=== PATIENT | female | born 1980 ===

== ENCOUNTER 2024-07-04 10:05 | Outpatient (RCR) | payer BC, SELFPAY ==
[2024-06-20 13:12] VITALS: BP 112/70
[2024-06-20] MEDS: VENOFER 110 MG IV (13:29)
[2024-06-20 14:37] VITALS: BP 101/59
[2024-06-27 10:11] VITALS: BP 119/65
[2024-06-27] MEDS: VENOFER 110 MG IV (10:23)
[2024-06-27 11:50] VITALS: BP 103/45
[2024-07-04] MEDS: VENOFER 110 MG IV (10:25)
[2024-07-04 10:28] VITALS: BP 102/64
[2024-07-04 11:45] VITALS: BP 101/56
== END 2024-07-05 08:38 | disposition home or self-care (01) ==
LOC: OID 10:05
PROVIDERS: ATTENDING PHYSICIAN Student in an Organized Health Care Education/Training Program
DX: D50.9 Iron deficiency anemia, unspecified (principal); R79.89 Other specified abnormal findings of blood chemistry
CPT/HCPCS: 96365; J1756

== ENCOUNTER → 2024-07-19 14:17 | Outpatient (REF) | payer BC, SELFPAY | LOC: HWRAD 14:17 | PROVIDERS: ATTENDING PHYSICIAN Internal Medicine Gastroenterology; FAMILY PHYSICIAN Student in an Organized Health Care Education/Training Program | DX: R74.8 Abnormal levels of other serum enzymes (principal) | CPT/HCPCS: 76700 ==

== ENCOUNTER 2024-08-01 10:39 | Outpatient (RCR) | payer BC, SELFPAY ==
[2024-07-25 14:30] VITALS: BP 115/68
[2024-07-25] MEDS: VENOFER 110 MG IV (14:35)
[2024-07-25 15:39] VITALS: BP 105/64
[2024-08-01 10:45] VITALS: BP 120/71
[2024-08-01] MEDS: VENOFER 110 MG IV (10:59)
[2024-08-01 12:06] VITALS: BP 104/60
== END 2024-08-02 09:46 | disposition home or self-care (01) ==
LOC: OID 10:39
PROVIDERS: ATTENDING PHYSICIAN Student in an Organized Health Care Education/Training Program
DX: D50.9 Iron deficiency anemia, unspecified (principal); R79.89 Other specified abnormal findings of blood chemistry
CPT/HCPCS: 96365; J1756

== ENCOUNTER → 2024-08-10 09:32 | Outpatient (REF) | payer BC, SELFPAY | LOC: HWWDC 09:32 | PROVIDERS: ATTENDING PHYSICIAN Student in an Organized Health Care Education/Training Program | DX: Z12.31 Encounter for screening mammogram for malignant neoplasm of breast (principal) | CPT/HCPCS: 77063; 77067 ==

== ENCOUNTER 2024-09-10 06:23 | Day surgery (SDC) | payer BC, SELFPAY | END 2024-09-10 11:04 | disposition home or self-care (01) | LOC: GI 06:23 | PROVIDERS: ATTENDING PHYSICIAN Internal Medicine Gastroenterology; FAMILY PHYSICIAN Student in an Organized Health Care Education/Training Program | DX: D50.9 Iron deficiency anemia, unspecified (principal); K29.70 Gastritis, unspecified, without bleeding | CPT/HCPCS: 43239; 88305; 88342 ==